=== PATIENT | female | born 1960 | race Caucasian/White ===

== ENCOUNTER 2017-07-05 01:09 | Emergency (ER) | payer MEDICAID ==
[2017-07-05 01:10] VITALS: BMI 27.5
[2017-07-05 01:27] VITALS: RESP 18
[2017-07-05] MEDS ORDERED: Sodium Chloride 0.9% 1,000 ML IV ONE (01:39)
[2017-07-05] MEDS ORDERED: (Novolin R) Insulin Human Regular 100 units/ml vial IV STA (01:40)
[2017-07-05] MEDS ORDERED: (Novolin R) Insulin Human Regular 100 units/ml vial ONE (01:52)
[2017-07-05] MEDS ORDERED: Sodium Chloride 0.9% 1,000 ML ONE (01:53)
[2017-07-05 01:54] LABS: BASO # 0.2 K/uL (0.0-0.2); BASO % 1.1 % (0.0-2.0); EOS # 0.3 K/uL (0.0-0.7); EOS % 1.6 % (0.0-4.0); LYMPH # 5.2 K/uL (1.0-4.3); LYMPH % 32.4 % (20.0-40.0); MEAN CORPUSCULAR HEMOGLOBIN 23.7 pg (27.0-31.0); MEAN CORPUSCULAR HGB CONC 31.6 g/dL (33.0-37.0); MEAN PLATELET VOLUME 8.1 fL (7.2-11.7); MONO # 1.2 K/uL (0.0-0.8); MONO % 7.5 % (0.0-10.0); RED CELL DISTRIBUTION WIDTH 15.9 % (11.5-14.5); WHITE BLOOD COUNT 16.2 K/uL (4.8-10.8)
[2017-07-05 01:57] LABS: RBC URINE 1 /hpf (0-3); URINE BACTERIA RARE (<OCC); URINE BILIRUBIN NEGATIVE (NEGATIVE); URINE BLOOD NEGATIVE (NEGATIVE); URINE COLOR Yellow (YELLOW); URINE GLUCOSE (UA) 1+ mg/dL (Normal); URINE KETONE NEGATIVE (NEGATIVE); URINE PROTEIN 1+ mg/dL (NEGATIVE); URINE UROBILINOGEN NORMAL mg/dL (0.2-1.0); WBC URINE 4 /hpf (0-5)
[2017-07-05 02:03] LABS: CHLORIDE 95 mmol/L (98-107); POTASSIUM 3.9 mmol/L (3.6-5.2); SODIUM 136 mmol/L (132-148)
[2017-07-05 02:05] LABS: BILIRUBIN,TOTAL 0.3 mg/dL (0.2-1.3); CARBON DIOXIDE 21 mmol/L (22-30); GFR AFRICAN-AMERICAN > 60; MEAN CELL VOLUME 75.1 fL (81.0-99.0); PLATELET COUNT 532 K/uL (130-400)
[2017-07-05 02:06] LABS: ALB/GLOB RATIO 1.1 (1.0-2.1); ALKALINE PHOSPHATASE 117 U/L (38-126); ALT/SGPT 51 U/L (9-52); AST/SGOT 40 U/L (14-36); BLOOD UREA NITROGEN 18 mg/dL (7-17); CALCIUM 8.9 mg/dl (8.6-10.4); GLUCOSE,RANDOM 324 mg/dL (65-105); TOTAL PROTEIN 7.5 g/dL (6.3-8.3)
[2017-07-05 02:30] LABS: URINE LEUKOCYTE ESTERASE TRACE Leu/uL (Negative)
--- NOTE | 2017-07-05 02:46 | C.PDOC ---
History Of Present Illness A 57 yo F presents to the ER c/o loose stool for the last week. Patient was treat by Dr. Smalls and was given Xifaxan and Flagyl with no significant improvements, that is provoking nausea. patient eats scantily and continues to have 3-6 soft bowel movements. Denies fever, chills, abdominal pain , vomiting, or any other complaints. Time Seen by Provider: 07/05/17 01:28 Chief Complaint (Nursing): GI Problem History Per: Patient History/Exam Limitations: no limitations Onset/Duration Of Symptoms: Days Current Symptoms Are (Timing): Still Present Severity: Mild Associated Symptoms: Nausea Recent travel outside of the [place]: No Additional History Per: Patient Past Medical History Reviewed: Historical Data, Nursing Documentation, Vital Signs Vital Signs: Last Vital Signs Temp 98 F 07/05/17 01:23 Pulse 94 H 07/05/17 01:23 Resp 18 07/05/17 01:23 BP 137/77 07/05/17 01:23 Pulse Ox 98 07/05/17 02:47 - Medical History PMH: Asthma, HTN, Hypercholesterolemia Family History: States: Unknown Family Hx - Social History Hx Alcohol Use: No Hx Substance Use: No - Immunization History Hx Influenza Vaccination: Yes Review Of Systems Except As Marked, All Systems Reviewed And Found Negative. Constitutional: Negative for: Fever, Chills Gastrointestinal: Positive for: Nausea, Diarrhea. Negative for: Vomiting, Abdominal Pain Physical Exam - Physical Exam Appears: Non-toxic, No Acute Distress Skin: Warm, Dry Head: Atraumatic, Normacephalic Cardiovascular: Rhythm Regular Respiratory: Normal Breath Sounds, No Rales, No Rhonchi, No Wheezing Gastrointestinal/Abdominal: Bowel Sounds (NOrmal bowel sounds), Soft, No Tenderness Back: Normal Inspection, No CVA Tenderness Neurological/Psych: Oriented x3, Normal Speech, Normal Cognition ED Course And Treatment - Laboratory Results Result Diagrams: 07/05/17 01:50 07/05/17 01:50 Lab Interpretation: Abnormal (elev glu, UA neg.) O2 Sat by Pulse Oximetry: 98 (RA) Pulse Ox Interpretation: Normal Progress Note: toradol, IVF, insulin,. After CT pt c/o mild pruritis of buttock area which resolved prior to return to 15. Pt seen and examined, no rash, no pruritis on her body. Allergy rescue meds held for lack of acute symptoms. Reevaluation Time: 04:48 Reassessment Condition: Improved Medical Decision Making Medical Decision Making: Impression: A 57 yo F presents to the ER c/o loose stool for the last week. Plans: * CT Abd/pel w/ contrast * pepcid * Novolin * Toradol * Zofran * IV fluids * Reassess 0450: ? early diverticulitis Disposition Doctor Will See Patient In The: Office Counseled Patient/Family Regarding: Studies Performed, Diagnosis - Disposition Referrals: Hilaria Smalls MD [Primary Care Provider] - Disposition: HOME/ ROUTINE Disposition Time: 04:50 Condition: GOOD Forms: [employer] (Tajik) - Clinical Impression Clinical Impression: Diverticulitis - Scribe Statement The provider has reviewed the documentation as recorded by the Scribmadhavi barone All medical record entries made by the Chongibmadhavi were at my direction and personally dictated by me. I have reviewed the chart and agree that the record accurately reflects my personal performance of the history, physical exam, medical decision making, and the department course for this patient. I have also personally directed, reviewed, and agree with the discharge instructions and disposition.
[2017-07-05] MEDS ORDERED: DiphenhydrAMINE 50 mg/ml Inj ONE (03:43)
[2017-07-05 04:32] LABS: BASOPHIL 1 % (0-2); EOSINOPHIL 1 % (0-4); METAMYELOCYTE 1 % (0-0); NEUTROPHIL 57 % (50-75); REACTIVE LYMPHOCYTES 9 % (0-0); TOTAL CELLS COUNTED 100
--- NOTE | 2017-07-05 04:33 | CT ---
EXAM: CT Abdomen and Pelvis With Intravenous Contrast CLINICAL HISTORY: 57 years old, female; Pain; Abdominal pain; Prior surgery; Surgery type: C-sectio , and breast left; Additional info: Llq, diarrhea x 1 wk, ? colitis vs crohn's TECHNIQUE: Axial computed tomography images of the abdomen and pelvis with intravenous contrast. All CT scans at this facility use one or more dose reduction techniques, viz.: automated exposure control; ma/kV adjustment per patient size (including targeted exams where dose is matched to indication; i.e. head); or iterative reconstruction technique. Coronal and sagittal reformatted images were created and reviewed. CONTRAST: 100 mL of [id number] administered intravenously. COMPARISON: No relevant prior studies available. FINDINGS: Lower thorax: No acute findings. ABDOMEN: Liver: Mild fatty infiltration. Gallbladder and bile ducts: No calcified stones. No ductal dilation. Pancreas: No ductal dilation. No mass. Spleen: No splenomegaly. Adrenals: No mass. Kidneys and ureters: No mass. No hydronephrosis. Stomach and bowel: Scattered diverticula within colon. Segmental areas of mild mural thickening vs underdistention of large bowel. Minimal stranding about proximal descending colon about diverticula. No obstruction. Appendix: No findings to suggest acute appendicitis. PELVIS: Bladder: Unremarkable. Reproductive: Unremarkable as visualized. ABDOMEN and PELVIS: Intraperitoneal space: No significant fluid collection. No free air. Bones/joints: No acute fracture. Soft tissues: Mild focal stranding LEFT anterior abdominal wall, nonspecific. Vasculature: Mild atherosclerotic disease. No aneurysm. Lymph nodes: No pathologically enlarged lymph nodes. IMPRESSION: 1. Probable early diverticulitis of descending colon. Recommend endoscopy following resolution. 2. Mild colitis versus underdistention. Clinical correlation is needed. 3. Incidental/non-acute findings are described above.
[2017-07-05 05:08] VITALS: BP 121/70; PULSE 75; TEMP 98; O2SAT 97
--- NOTE | 2017-07-05 08:24 | RAD ---
PROCEDURE: Radiographs of the chest and abdomen (obstructive series) HISTORY: abd pain COMPARISON: No prior. TECHNIQUE: AP radiograph of the chest, with upright and supine radiographs of the abdomen. FINDINGS: CHEST: Lungs: Clear. Cardiovascular: Normal size heart. No pulmonary vascular congestion. Pleura: No pleural fluid. No pneumothorax. Other findings: None. ABDOMEN AND PELVIS: Bowel: Unremarkable bowel gas pattern. No evidence of mechanical obstruction. Free air: None. Bones: Unremarkable. Other findings: None. IMPRESSION: Unremarkable radiographs of chest and abdomen. No evidence of mechanical bowel obstruction.
== END 2017-07-05 05:17 | disposition home or self-care (01) ==
LOC: SUPCPDRO 01:09 → C.ER 01:09
DX: K57.32 Diverticulitis of large intestine without perforation or abscess without bleeding (principal); E11.9 Type 2 diabetes mellitus without complications
CPT/HCPCS: 74022; 74177; 80053; 81001; 82948; 83690; 85025; 96361; 96374; 96375; 99285; J1885; J2405; J7040; Q9967